=== PATIENT | female | born 1995 | race Caucasian/White ===

== ENCOUNTER → 2018-05-24 16:11 | Outpatient (CLI) | payer OTHER, BC, SELFPAY ==
--- NOTE | 2018-05-24 16:32 | MRI_ITS ---
STUDY: MRI LUMBAR SPINE WITHOUT CONTRAST REASON FOR EXAM: Female, 22 years old. Low back pain TECHNIQUE: Standardized fat and water weighted pulse sequences were obtained in the sagittal and axial planes. COMPARISON: None FINDINGS: T12-L1: Normal endplates. Normal disc height, hydration and morphology. Normal bilateral facet joints. Normal central canal and bilateral lateral recesses. Normal bilateral intervertebral neural foramina. Normal lumbar lordosis. There is no substantial scoliosis. Normal conus medullaris that terminates at L1 L1-2: Normal endplates. Normal disc height, hydration and morphology. Normal bilateral facet joints. Normal central canal and bilateral lateral recesses. Normal bilateral intervertebral neural foramina. L2-3: Normal endplates. Normal disc height, hydration and morphology. Normal bilateral facet joints. Normal central canal and bilateral lateral recesses. Normal bilateral intervertebral neural foramina. L3-4: Normal endplates. Normal disc height, hydration and minimal annular bulge. Normal bilateral facet joints. Normal central canal and bilateral lateral recesses. Normal bilateral intervertebral neural foramina. L4-5: Normal endplates. Normal disc height, hydration and mild annular bulge.. Normal bilateral facet joints. Normal central canal and bilateral lateral recesses. Normal bilateral intervertebral neural foramina. L5-S1: Normal endplates. Normal disc height, hydration and morphology. Normal bilateral facet joints. Normal central canal and bilateral lateral recesses. Normal bilateral intervertebral neural foramina. Normal visualized sacral ala. Normal visualized paraspinous soft tissue structures. MRI/Spine Lumbar (Routine) IMPRESSION: No evidence for acute fracture or other significant bony pathology Minor bulging of the annuli at L3-4 and L4-5 No focal disc protrusion or spinal stenosis Electronically Signed: Alex Pires MD at 17:41 EDT , Service support ,
== END ==
PROVIDERS: Visit Provider Anesthesiology Pain Medicine
DX: M54.9 Dorsalgia, unspecified (principal); M79.606 Pain in leg, unspecified
CPT/HCPCS: 72148

== ENCOUNTER → 2018-08-20 20:37 | Outpatient (CLI) | payer OTHER, BC, SELFPAY ==
[2018-08-27 09:13] LABS: HPV Reflexed? NOT INDICATED
== END ==
PROVIDERS: Referring Provider Obstetrics & Gynecology; Visit Provider Obstetrics & Gynecology
DX: Z12.4 Encounter for screening for malignant neoplasm of cervix (principal)
CPT/HCPCS: 88175; G0145

== ENCOUNTER 2018-11-03 12:37 | Emergency (ER) | payer BC, OTHER, SELFPAY ==
[2018-11-03 12:37] VITALS: BMI 29.5
[2018-11-03 12:38] VITALS: BP 119/68; PULSE 94; RESP 16; TEMP 36.4; O2SAT 98; BMI 29.2
[2018-11-03 12:59] VITALS: BP 119/68; PULSE 94; RESP 18; TEMP 36.4; O2SAT 100; O2SAT 99
--- NOTE | 2018-11-03 13:00 | RAD_ITS ---
STUDY: X-RAY CHEST REASON FOR EXAM: Female, 22 years old. Chest pain TECHNIQUE: AP COMPARISON: 03/15/2016 FINDINGS: The lungs are clear and expanded. There is no demonstrated pleural abnormality. Normal size heart. Normal mediastinum and job. Normal visualized pulmonary arteries. Normal visualized aortic arch and descending thoracic aorta. Normal visualized thoracic spine. Normal visualized ribs, clavicles, and shoulders. There is no demonstrated abnormality of the visualized soft tissue structures of the upper abdomen. RAD/Chest 1 View (Portable) IMPRESSION: Stable, nonacute portable x-ray examination of the chest. Electronically Signed: Xavi Quan MD at 13:31 EST , Service support ,
--- NOTE | 2018-11-03 13:06 | ED.DCSUM_ITS ---
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 and has been ill, she points directly to her right upper quadrant epigastric area area of discomfort she has no past history of any kind no medications no cardiopulmonary GI history denies being currently on her menstrual cycle Physical Examination: [] Afebrile 119/68 General, no distress resting comfortably HEENT is generally unremarkable The neck is supple no adenopathy Cardiovascular, regular rate and rhythm Lungs, clear bilateral Abdomen, soft vague discomfort to the right upper abdomen no rebound guarding organomegaly Extremities, no clubbing cyanosis or edema Neurologic, awake alert answering questions appropriately moving all 4 extremities Test Results: [] Emergency Department Course and Treatment: [] Complaints all the above screening labs IV fluids ultrasound Screening labs are generally unremarkable the AST is about 87, chest x-ray EKG other labs, were unremarkable, right upper quadrant ultrasound also unremarkable see that report, common bile duct high normal to 5 reevaluation she is feeling better discussed all the test results to her discussed that exact etiology of all the above is unclear she is comfortable discharge home on Prilosec bland diet she is referred to Dr. Ortiz for further management follow-up she will return for change in symptoms Treatment Plan: [] Disposition: [] Home stable Impression: [] rt Upper abdominal pain improved etiology unclear This note was generated with [employer] dictation software. It may contain incorrect words, spelling, and punctuation that were not noted in review of the chart prior to signing ED Disposition - Plan for ED Patient: Chief Complaint: Chest Pain
[2018-11-03 13:11] LABS: Absolute Lymphocyte Count 0.56 X10^3/ul (0.83-4.51); Absolute Neutrophil Count 7.5 X10^3/uL (2.0-7.7); Basophil# 0.01 X10^3/uL; Basophil% 0.1 % (0-1); Eosinophil# 0.11 X10^3/uL; Eosinophils% 1.3 % (0-5); Hematocrit 40.6 % (37-47); Hemoglobin 13.2 g/dl (12.0-15.0); Lymphocyte # 0.56 X10^3/ul (4.0); Lymphocyte % 6.5 % (19-41); Mean Corp Hgb Conc 32.5 g/gl (32-36); Mean Corpuscular Hgb 29.9 pg (27.0-32.0); Mean Corpuscular Volume 91.9 fL (81-99); Mean Platelet Vol. 9.3 fl (6.2-12.0); Monocyte# 0.36 X10^3/uL; Monocyte% 4.2 % (0-10); Neutrophil # 7.53 X10^3/uL (2.7-7.7); Neutrophil % 87.8 % (47-70); Platelet Count 167 K/mm3 (150-450); RBC Distribution Width CV 12.5 % (11.6-14.6); Red Blood Count 4.42 M/mm3 (4.2-5.4); White Blood Count 8.6 K/mm3 (4.4-11.0)
[2018-11-03 13:19] LABS: Differential Indicated SCAN CRITERIA MET; POSITIVE COUNT NO; POSITIVE DIFFERENTIAL YES; POSITIVE MORPHOLOGY NO
[2018-11-03 13:20] LABS: Bacteria 0 SEEN /hpf (None Seen); Mucous, Urine 0 SEEN /hpf (<or=2+); Squamous Epithelial Cells - UA 0 SEEN /hpf (5-10); White Blood Cells 0 SEEN /hpf (0-5)
[2018-11-03 13:22] LABS: Anion Gap 8 (5-15); BUN 9 mg/dL (7-18); BUN/Creat Ratio 14.8 RATIO (10-20); Calcium,Total 8.2 mg/dL (8.5-10.1); Chloride 109 mmol/L (98-107); Creatinine, Serum 0.61 mg/dL (0.55-1.02); EST Glomerular Filtration Rate 128 mL/min (>60); Est Glom Filt Rate - Afr Amer 154 mL/min (>60); Glucose 94 mg/dL (74-106); Potassium 3.4 mmol/L (3.5-5.1); Sodium Level 141 mmol/L (136-145)
[2018-11-03 13:35] LABS: AST(SGOT) 109 U/L (15-37); Alanine Aminotransfer ALT/SGPT 78 U/L (13-56); Albumin, Serum 3.6 g/dL (3.2-5.0); Alkaline Phosphatase 99 U/L (45-117); Bilirubin, Direct 0.14 mg/dL (0.00-0.30); Lipase 171 U/L (73-393); Pregnancy, Serum, hCG Quali. NEGATIVE Negative (0-9 Nonpreg); Protein, Total 6.6 g/dL (6.4-8.2)
[2018-11-03 13:39] LABS: Color, Urine Yellow (Yellow); Glucose, Dipstick Normal (Normal); Ketone-Dipstick Negative (Negative); Leukocyte Esterase-Dipstick Negative /ul (Negative); Nitrite-Dipstick Negative (Negative); Occult Blood-Urine 250 /ul (Negative); Protein-Dipstick Negative (Negative); Specific Gravity, Urine 1.015 (1.002-1.030); Urine Bilirubin Dipstick Negative (Negative); Urine Clarity Clear (Clear); Urine Urobilinogen Normal (Normal)
[2018-11-03 13:47] LABS: Red Blood Cells-Urine 10-25 SEEN /hpf (0-5)
--- NOTE | 2018-11-03 14:07 | US_ITS ---
STUDY: ABDOMINAL ULTRASOUND - RIGHT UPPER QUADRANT REASON FOR VISIT: Female, 22 years old. Right upper quadrant pain TECHNIQUE: Ultrasound evaluation of the right upper quadrant was performed with real-time and static pérez-scale imaging. TECHNICAL QUALITY: Adequate. COMPARISON: None. FINDINGS: Liver: The liver measures 14.5 cm. There is normal echogenicity of the liver. The bile ducts are within normal limits. There is hepatic color flow. The direction of portal flow is hepatopetal. There is no demonstrated mass lesion. Gallbladder: Normal distended gallbladder. The gallbladder wall measures 2.2 mm. There is a negative sonographic Delatorre's sign. There is no pericholecystic fluid. There are no gallstones. Common Bile Duct (C.B.D.): The common bile duct measures 5.0 mm. Pancreas: Normal size of the head, body and tail of the pancreas. There is normal echogenicity of the pancreas. There is no demonstrated pancreatic mass or cyst. Right Kidney: Normal size of the right kidney. The right kidney measures 10.7 cm. Normal renal cortex. The right cortex measures 1.4 cm. There is no demonstrated renal mass or cyst. There is no right hydronephrosis. US/Gallbladder IMPRESSION: Normal right upper quadrant ultrasound examination. Electronically Signed: Cornelius Aguilera DO at 15:46 EST Tel , Service support ,
[2018-11-03] MEDS: 0.9% Normal Saline 1,000 ML 1000 ML IV (14:30)
[2018-11-03] MEDS: morphine 8 MG/ML Syringe IV (14:30)
[2018-11-03] MEDS: Ondansetron 4 MG/2 ML Vial IV (14:30)
[2018-11-03 14:34] VITALS: BP 92/64; PULSE 95; RESP 16; O2SAT 100
[2018-11-03] MEDS: Mag Hydrox/Al Hydrox/Simeth 30 ML UDC PO (14:34)
--- NOTE | 2018-11-03 15:59 | ED.DEP ---
ED Disposition - Plan for ED Patient: Chief Complaint: Chest Pain Instructions: ED Chest Pain Atypical Unkn Cause, ED Abdominal Pain Unkn Cause Prescriptions: Omeprazole [Prilosec] 20 mg PO DAILY #30 cap Referrals: Care Physician,No Primary [Primary Care Provider] - Nikolas Nath MD [STAFF PHYSICIAN] -
[2018-11-03 16:09] VITALS: BP 103/56; PULSE 66; RESP 14; O2SAT 98
[2018-11-03] MEDS: Famotidine 20 MG Tablet 40 MG PO (16:18)
== END 2018-11-03 16:22 | disposition home or self-care (01) ==
PROVIDERS: Emergency Provider Emergency Medicine
DX: R10.11 Right upper quadrant pain (principal); R19.7 Diarrhea, unspecified; R11.2 Nausea with vomiting, unspecified
CPT/HCPCS: 71045; 76705; 80048; 80076; 81001; 83690; 84484; 84703; 85025; 93005; 96361; 96374; 96375; 99285; J7030; J2405

== ENCOUNTER → 2018-12-06 10:14 | Outpatient (CLI) | payer BC, SELFPAY ==
[2018-11-22 09:25] VITALS: BMI 29.2
[2018-11-22 14:10] VITALS: BMI 30.4
--- NOTE | 2018-12-06 10:17 | NM_ITS ---
CLINICAL: 23-year-old female reported history of right upper quadrant abdominal pain. RADIONUCLIDE HEPATOBILIARY SCINTIGRAPHY COMPARISON: Abdominal ultrasound report 11/03/2018 FINDINGS: Following the intravenous administration of 5.5 mCi of 99m Tc Mebrofenin, hepatobiliary images reveal: 1. Relatively prompt and homogeneous radiopharmaceutical concentration is noted by a normal sized liver. No parenchymal defects are identified. 2. Gallbladder activity is identified at 45 minutes post radiopharmaceutical administration. 3. Small intestinal tract is observed at 10 minutes following tracer injection. 4. Washout of the radiopharmaceutical by the hepatic parenchyma appears qualitatively normal. Cholecystokinin (0.02 ug/kg) was administered intravenously over a 30-minute period. The post CCK gallbladder ejection fraction calculated at 22 minutes following Cholecystokinin administration was noted to be 86.0 % (normal greater than 35%). During 30 minutes of post CCK imaging, there is no scintigraphic evidence of reflux of the radiotracer into the common hepatic duct or significant refilling of the gallbladder. AL/Hepatobilliary Img w/Pharm Int IMPRESSION: 1. NORMAL 99m Tc Mebrofenin hepatobiliary imaging examination with Cholecystokinin. A. A gallbladder ejection fraction calculated to be greater than 35% following the administration of Cholecystokinin makes the probability of functional hepatobiliary disease (gallbladder and/or sphincter of Oddi dyskinesia) and/or organic hepatobiliary disease (chronic acalculous cholecystitis and/or cystic duct syndrome) to be low. (Andriy Kaye et al, Journal of Nuclear Medicine 32:1695, 1991). Electronically Signed: Nikolas Morris DO at 8:06 EST Tel , Service support ,
== END ==
PROVIDERS: Family Provider Internal Medicine; PCP Internal Medicine; Referring Provider Surgery
DX: R10.11 Right upper quadrant pain (principal)
CPT/HCPCS: 78227; A9537; J2805

== ENCOUNTER 2019-03-07 09:00 | Outpatient (RCR) | payer BC, SELFPAY ==
[2018-12-09 12:50] VITALS: BMI 30.4
--- NOTE | 2019-02-05 16:51 | HP.PTEVAL ---
Patient's Visit Information MARIA PERALTA is a 23 year old F referred to Physical Therapy by Mona Mccauley MD with a diagnosis of back and leg pain. Date of Evaluation: 02/05/19 Physical Therapist: PHAN Mittal - Visit Plan Frequency: 2x /Week Duration: 2 Months Plan: 2X/ week for 4 weeks for centralization of symptoms, Postural exercises, progressive core stability, body mechanics, Squat mechanics.... with HEP and modalities if needed PRN - Subjective Findings: Pt reports that she feels that she may have HD of L5 area.... She runs and lifts a lot. She has h/o L3, L4, and L5 on MRI in May. Dr not sure why she is getting the pain because he called them minor. On 01-20-19 She was squatting 155 pounds and came back up and she popped and she immed leg weakness and she could not take the weights off the bar. She could not stand up straight. It is all in her hip cavity. She had an epidural 2 weeks ago and she thinks that he went to high. She wanted PT to see if it will help. When is happened she had pain down B legs but the R hips worse. She has B lateral hip pain. The first week this happened she had a lot of pain in her quads and gastroc area. She tried not to sit alot that week. Helping squating and lifting someones feet into a bed. 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 She did not sleep the first 2 weeks and going from supine to sit is difficult or turning. She has to sleep on her sides. Another epidural will happen on at L%. - Pain B hip pain Pain Intensity (Out of 10): 1 - Objective Gait: normal gait pattern. Trunk AROM: flex 25%, ext 10%, SB R (increase pain) 50% and SB L 75%. -SLUMP test. + SLR test B. LE MMT: B hip flex 4/5, B knee flex 4/5, B knee ext 4/5, R s/l hip abd 4/5 and L 4+/5. She is able to walk on heels and no toes. Patellar DTR's 1+/3. Pronelying: At first she had center of back pain. After 2 min prone lying she had no pain. Prone to MARIAM 3 X 10... no pain.... Prone to MARIAM with extension to end range... increase pain into thighs and buttocks... stopped that exercise. Instruncted pt in sitting with good posture with a towel roll. - Goals Goal 1:: I HEP Goal Time Frame: 4-6 Weeks Goal 2:: Decrease back pain to 1/10 with sitting Goal Time Frame: 4-6 Weeks Goal 3:: Increase trunk AROM to full AROM of L-spine Goal Time Frame: 4-6 Weeks Goal 4:: Be able to sit with upright posture without pain. Goal Time Frame: 4-6 Weeks - Rehabilitation Potential Rehabilitation Potential: Good - Anticipated Interventions Patient/Client Instruction: Educate patient on: Condition, Plan of Care For the Purpose of:: To decrease pain, To decrease swelling/inflammation, To increase ROM, To improve nutrient delivery to tissue, To improve muscle performance and motor function, To improve ability to perform ADL's, To increase tolerance to activity/condition/position, To improve performance and independence with ADL's, To improve gait and locomotor functions, To improve health of tissue, To increase flexibility/ROM Therapeutic Exercise to Include: Strength training, Postural training, Flexibilty training, Gait and locomotor training, Active ROM, Dynamic Lumbar Stabilization, Iain Exercises, Scapular Strength/Stabilization For the Purpose of:: To decrease pain, To increase ROM, To improve nutrient delivery to tissue, To improve muscle performance and motor function, To improve ability to perform ADL's, To increase tolerance to activity/condition/position, To improve performance and independence with ADL's, To improve ability of physical actions for home/community/work/leisure, To improve health of tissue, To decrease soft tissue restriction, To increase flexibility/ROM Manual Therapy Techniques to Include: Soft tissue mobilization For the Purpose of:: To decrease pain, To improve nutrient delivery to tissue IF ES: Yes Cryotherapy (ice pack, ice massage): Yes Thermo therapy (hot pack): Yes Ultrasound (thermal/non thermal): Yes For the Purpose of:: To decrease pain, To decrease swelling/inflammation, To improve nutrient delivery to tissue Thank you for the opportunity to evaluate your patient. For Medicare and Medicare HMO plans, please review the plan of care and approve it. It will need to be FAXED BACK to us at [phone] for Medicare purposes. For Medicare only, by signing this I certify the plan of care. Please let me know if there are questions or concerns regarding this plan of care. Physician Signature: Date:
--- NOTE | 2019-06-17 13:46 | HP.PTDCNRP_ITS ---
HP - Discharge Summary (1) - Patient Information MARIA PERALTA was seen in my office for initial evaluation on 02/05/19. The following Plan of Care was established for this patient: Initial Frequency: 2x /Week Initial Duration: 2 Months - Anticipated Interventions Patient/Client Instruction: Educate patient on: Condition, Plan of Care For the Purpose of:: To decrease pain, To decrease swelling/inflammation, To in crease ROM, To improve nutrient delivery to tissue, To improve muscle performance and motor function, To improve ability to perform ADL's, To increase tolerance to activity/condition/position, To improve performance and independence with ADL's, To improve gait and locomotor functions, To improve health of tissue, To increase flexibility/ROM Therapeutic Exercise to Include: Strength training, Postural training, Flexibilty training, Gait and locomotor training, Active ROM, Dynamic Lumbar Stabilization, Iain Exercises, Scapular Strength/Stabilization For the Purpose of:: To decrease pain, To increase ROM, To improve nutrient delivery to tissue, To improve muscle performance and motor function, To improve ability to perform ADL's, To increase tolerance to activity/condition/position, To improve performance and independence with ADL's, To improve ability of physical actions for home/community/work/leisure, To improve health of tissue, To decrease soft tissue restriction, To increase flexibility/ROM Manual Therapy Techniques to Include: Soft tissue mobilization For the Purpose of:: To decrease pain, To improve nutrient delivery to tissue IF ES: Yes Cryotherapy (ice pack, ice massage): Yes Thermo therapy (hot pack): Yes Ultrasound (thermal/non thermal): Yes For the Purpose of:: To decrease pain, To decrease swelling/inflammation, To improve nutrient delivery to tissue This patient was last seen in our office 03/07/19. Pertinent comments regarding their Physical therapy will appear below: [facility]. At this point I will be discontinuing this patient from physical therapy. I would be happy to see this patient again in the future if found appropriate by the physician. Thank you! Gwen Griffin, MPT
== END 2019-03-07 19:00 | disposition home or self-care (01) ==
LOC: PT 09:00
PROVIDERS: Referring Provider Anesthesiology Pain Medicine; Visit Provider Anesthesiology Pain Medicine
DX: M54.9 Dorsalgia, unspecified (principal); M79.604 Pain in right leg
CPT/HCPCS: 97014; 97110; 97140; 97161; G0283

== ENCOUNTER → 2020-06-30 09:54 | Outpatient (CLI) | payer OTHER, SELFPAY ==
[2020-06-30 09:46] VITALS: BMI 31.2
--- NOTE | 2020-06-30 09:56 | RAD_ITS ---
STUDY: X-RAY - LEFT KNEE REASON FOR EXAM: Female, 24 years old. RECENT INJURY, PREV ACL REPAIR. SWELLING AND PAIN LATERALLY TECHNIQUE: 4 view(s) of the knee. COMPARISON: None. FINDINGS: Prior ACL reconstruction. No acute fracture, dislocation or osseous destruction. No significant joint space narrowing. No significant productive changes. No significant soft tissue swelling. Small joint effusion. RAD/Knee 4 or More Views IMPRESSION: Left knee acutely intact Small joint effusion Electronically Signed: Efrem Lucas DO at 8:53 EDT Tel , Service support ,
== END ==
PROVIDERS: Referring Provider Orthopaedic Surgery; Visit Provider Orthopaedic Surgery
DX: M25.562 Pain in left knee (principal)
CPT/HCPCS: 73564